=== PATIENT | female | born 1925 | race Caucasian/White ===

== ENCOUNTER → 2017-04-17 | Outpatient (CLI) | payer OTHER ==
[~2017-04-17] MED LIST: AMLO2.5T PO; AMLODIPINE PO; HYDR-3138 PO; LEVO50TA5 PO; LINE600T37 PO; LORA2TAB99 PO; OMEG1CAP6 PO; RANI150T4 PO
== END | disposition home or self-care (01) ==
LOC: RAD 12:46
PROVIDERS: ATTEND Internal Medicine Infectious Disease
DX: Z45.2 Encounter for adjustment and management of vascular access device (principal); J32.3 Chronic sphenoidal sinusitis; Z79.2 Long term (current) use of antibiotics
CPT/HCPCS: 36569; 76937; 77001; C1751